=== PATIENT | male | born 1950 | race Caucasian/White ===

== ENCOUNTER → 2017-03-09 | Outpatient (CLI) | payer MEDICARE, BC ==
[~2017-03-09] MED LIST: FISH OIL 1000MG1 CAP PO; LIPITOR 10MG10 MG PO; MULTI VITAMINS1 TAB PO; NATURAL E400 IU PO
== END ==
LOC: COL.RAD 11:30
DX: K57.30 Diverticulosis of large intestine without perforation or abscess without bleeding (principal)
CPT/HCPCS: Q9967

== ENCOUNTER 2019-10-24 15:25 | Outpatient (RCR) | payer MEDICARE, BC | END 2020-01-22 | disposition home or self-care (01) | LOC: MKS.ESL.OT | DX: G20 Parkinson's disease (principal); G56.03 Carpal tunnel syndrome, bilateral upper limbs ==

== ENCOUNTER → 2020-11-17 | Outpatient (CLI) | payer MEDICARE, BC | LOC: COL.RAD 07:05 | DX: K57.30 Diverticulosis of large intestine without perforation or abscess without bleeding (principal); N28.1 Cyst of kidney, acquired | CPT/HCPCS: Q9967 ==

== ENCOUNTER 2021-05-31 09:15 | Outpatient (RCR) | payer MEDICARE, BC | END 2021-08-06 | disposition home or self-care (01) | LOC: MKS.ESL.PT | DX: M17.12 Unilateral primary osteoarthritis, left knee (principal) ==

== ENCOUNTER → 2023-12-14 | Outpatient (CLI) | payer MEDICARE, BC | LOC: COL.LAB 12:55 | DX: Z11.9 Encounter for screening for infectious and parasitic diseases, unspecified (principal); M25.561 Pain in right knee ==